=== PATIENT | male | born 1970 | race Caucasian/White ===

== ENCOUNTER → 2020-03-23 | Outpatient (CLI) | payer BC, OTHER | LOC: ECHO 11:19 | DX: I99.9 Unspecified disorder of circulatory system (principal); I08.1 Rheumatic disorders of both mitral and tricuspid valves | CPT/HCPCS: ECHO; 93306 ==

== ENCOUNTER 2021-10-28 11:13 | Emergency (ER) | payer OTHER ==
[2021-10-28] MEDS ORDERED: CYCLOBENZAPRINE10 MG PO (15:07)
== END 2021-10-28 15:35 | disposition home or self-care (01) ==
LOC: ER1 11:13
DX: M47.816 Spondylosis without myelopathy or radiculopathy, lumbar region (principal); N20.0 Calculus of kidney; K21.9 Gastro-esophageal reflux disease without esophagitis; I42.9 Cardiomyopathy, unspecified
CPT/HCPCS: 72131; 99283